=== PATIENT | female | born 1985 | race African-American/Black ===

== ENCOUNTER 2020-07-15 16:25 | Emergency (ER) | payer OTHER ==
[~2020-07-15] VITALS: Ht 175.3 cm; Wt 104.3 kg
[2020-07-15 16:29] VITALS: BP 141/110
[2020-07-15] MEDS ORDERED: KETOROLAC 30 MG/ML VIAL IVP ONE (16:40)
[2020-07-15 17:31] LABS: BASOPHILS # (AUTO) 0.1 K/uL (0.00-0.22); BASOPHILS % (AUTO) 1.6 % (0.0-2.0); EOSINOPHILS # (AUTO) 0.1 K/uL (0-0.4); EOSINOPHILS % (AUTO) 1.4 % (0.0-4.0); HEMATOCRIT 34.7 % (36-48); HEMOGLOBIN 11.2 g/dL (12.0-16.0); LYMPHOCYTES # (AUTO) 2.6 K/uL (2.5-16.5); LYMPHOCYTES % (AUTO) 33.7 % (20.5-51.1); MEAN CORPUSCULAR HEMOGLOBIN 25 pg (27-31); MEAN CORPUSCULAR HGB CONC 32 g/dL (33-37); MEAN CORPUSCULAR VOLUME 77.5 fL (80-94); MONOCYTES # (AUTO) 0.2 K/uL (0.8-1.0); MONOCYTES % (AUTO) 2.8 % (1.7-9.3); NEUTROPHILS # (AUTO) 4.7 K/uL (1.8-7.7); NEUTROPHILS % (AUTO) 60.5 % (42.2-75.2); PLATELET COUNT (AUTO) 448 K/uL (140-450); RED BLOOD CELL COUNT(AUTO) 4.48 MIL/uL (4.20-5.40); RED CELL DISTRIBUTION WIDTH 20.9 % (11.6-13.7); WHITE BLOOD COUNT (AUTO) 7.7 K/uL (4.8-10.8)
[2020-07-15 17:44] LABS: ALBUMIN 3.8 g/dL (3.4-5.0); ANION GAP 14.1 (8-16); CARBON DIOXIDE 22.9 mmol/L (21-32); CREATININE 0.8 mg/dL (0.6-1.3); TOTAL BILIRUBIN 0.2 mg/dL (0.0-1.0)
[2020-07-15 18:40] VITALS: BP 152/90
== END 2020-07-15 18:41 | disposition home or self-care (01) ==
LOC: MED 16:25
DX: R07.81 Pleurodynia (principal); R05 Cough; Z20.828 Contact with and (suspected) exposure to other viral communicable diseases; M54.9 Dorsalgia, unspecified
CPT/HCPCS: 71045; 80053; 83880; 84484; 85025; 93005; 96374; 99285; J1885; U0003

== ENCOUNTER 2021-03-14 13:54 | Emergency (ER) | payer OTHER ==
[~2021-03-14] VITALS: Ht 180.3 cm; Wt 101.6 kg
[2021-03-14 14:20] VITALS: BP 148/93
--- NOTE | 2021-03-14 14:40 | NUR ---
PATIENT LEFT WITHOUT BEING SEEN BY DR. BUCKLEY. NO FURTHER CARE PROVIDED FOR PATIENT.
== END 2021-03-14 14:40 | disposition left against medical advice (07) ==
LOC: MED 13:54
DX: J02.9 Acute pharyngitis, unspecified (principal); Z53.21 Procedure and treatment not carried out due to patient leaving prior to being seen by health care provider

== ENCOUNTER 2021-03-22 06:27 | Day surgery (SDC) | payer OTHER, SELFPAY ==
[~2021-03-22] VITALS: Ht 177.8 cm; Wt 99.3 kg
[2021-03-22 08:24] LABS: BASOPHILS % (AUTO) 0.8 % (0.0-2.0); EOSINOPHILS # (AUTO) 0.1 K/uL (0-0.4); EOSINOPHILS % (AUTO) 1.1 % (0.0-4.0); HEMATOCRIT 34.4 % (36-48); HEMOGLOBIN 11.1 g/dL (12.0-16.0); LYMPHOCYTES # (AUTO) 1.8 K/uL (2.5-16.5); LYMPHOCYTES % (AUTO) 30.2 % (20.5-51.1); MEAN CORPUSCULAR HEMOGLOBIN 25 pg (27-31); MEAN CORPUSCULAR HGB CONC 32 g/dL (33-37); MEAN CORPUSCULAR VOLUME 78.6 fL (80-94); MONOCYTES # (AUTO) 0.3 K/uL (0.8-1.0); MONOCYTES % (AUTO) 4.6 % (1.7-9.3); NEUTROPHILS # (AUTO) 3.8 K/uL (1.8-7.7); NEUTROPHILS % (AUTO) 63.3 % (42.2-75.2); PLATELET COUNT (AUTO) 467 K/uL (140-450); RED BLOOD CELL COUNT(AUTO) 4.37 MIL/uL (4.20-5.40); RED CELL DISTRIBUTION WIDTH 20.6 % (11.6-13.7); WHITE BLOOD COUNT (AUTO) 6.1 K/uL (4.8-10.8)
[2021-03-22 08:46] LABS: PROTHROMBIN TIME 9.3 secs (10.8-13.4)
[2021-03-22] MEDS ORDERED: LIDOCAINE 2% 1000 MG/50 ML VIAL INJ ONE (08:52)
[2021-03-22] MEDS ORDERED: fentaNYL citrate 0.05 MG/ML VIAL ONE (09:00)
[2021-03-22] MEDS ORDERED: MORPHINE SULFATE 4 MG/ML SYR ONE (10:18)
[2021-03-22] MEDS: MORPHINE SULFATE 4 MG/ML SYR IVP PRN ×2 (10:51→11:10)
[2021-03-22] MEDS ORDERED: fentaNYL citrate 0.05 MG/ML VIAL IVP ONE (11:45)
[2021-03-22] MEDS ORDERED: MORPHINE SULFATE 4 MG/ML SYR IVP PRN (12:55)
[2021-03-22] MEDS ORDERED: traMADol 50 MG TAB ONE (13:44)
[2021-03-22] MEDS ORDERED: traMADol 50 MG TAB PO SCH (14:00)
== END 2021-03-22 14:00 | disposition home or self-care (01) ==
LOC: MDS 06:27 → MFCC 06:28 → MDS 14:00
PROVIDERS: ATTEND Internal Medicine Gastroenterology
DX: K75.81 Nonalcoholic steatohepatitis (NASH) (principal); R94.5 Abnormal results of liver function studies; I10 Essential (primary) hypertension; Z79.899 Other long term (current) drug therapy
CPT/HCPCS: 36415; 47000; 76942; 81025; 85025; 85610; 85730; 87426; J2001; J2270; J3010; Q0092; 88307; 88313

== ENCOUNTER 2021-05-04 13:51 | Emergency (ER) | payer OTHER, SELFPAY ==
[~2021-05-04] VITALS: Ht 177.8 cm; Wt 99.8 kg
[2021-05-04 13:53] VITALS: BP 178/110
--- NOTE | 2021-05-04 13:58 | NUR ---
DR SAID EXAMINING PT IN TRIAGE
[2021-05-04 14:22] LABS: BASOPHILS # (AUTO) 0.1 K/uL (0.00-0.22); BASOPHILS % (AUTO) 0.7 % (0.0-2.0); EOSINOPHILS % (AUTO) 0.4 % (0.0-4.0); HEMATOCRIT 30.7 % (36-48); HEMOGLOBIN 9.9 g/dL (12.0-16.0); LYMPHOCYTES # (AUTO) 2.1 K/uL (2.5-16.5); LYMPHOCYTES % (AUTO) 26.6 % (20.5-51.1); MEAN CORPUSCULAR HEMOGLOBIN 25 pg (27-31); MEAN CORPUSCULAR HGB CONC 32 g/dL (33-37); MEAN CORPUSCULAR VOLUME 75.6 fL (80-94); MONOCYTES # (AUTO) 0.3 K/uL (0.8-1.0); NEUTROPHILS # (AUTO) 5.5 K/uL (1.8-7.7); NEUTROPHILS % (AUTO) 68.3 % (42.2-75.2); PLATELET COUNT (AUTO) 491 K/uL (140-450); RED BLOOD CELL COUNT(AUTO) 4.05 MIL/uL (4.20-5.40); RED CELL DISTRIBUTION WIDTH 19.7 % (11.6-13.7)
[2021-05-04 14:41] LABS: APPEARANCE,URINE CLOUDY (CLEAR); BILIRUBIN,URINE NEGATIVE (NEGATIVE); BLOOD, URINE 3+ (NEGATIVE); COLOR,URINE ORANGE (YELLOW); LEUKOCYTE ESTERASE ,URINE TRACE (NEGATIVE); NITRITE, URINE NEGATIVE (NEGATIVE); UGLUCOSE NEGATIVE (NEGATIVE)
[2021-05-04 14:43] LABS: ALBUMIN 3.7 g/dL (3.4-5.0); ANION GAP 14.3 (8-16); CARBON DIOXIDE 21.2 mmol/L (21-32); CREATININE 0.7 mg/dL (0.6-1.3); POTASSIUM 3.5 mmol/L (3.5-5.1); TOTAL BILIRUBIN 0.4 mg/dL (0.0-1.0)
[2021-05-04 14:58] LABS: RBC,URINE 80-100 /HPF (0-5)
--- NOTE | 2021-05-04 15:07 | NUR ---
35 Y/O F BIB SELF FROM HOME, PATIENT PRESENTS TO ED WITH VAGINAL BLEEDING FOR 13 DAYS, BRIGHT RED BLOOD, HEADACHE AND VAGINAL RASH. PT STATES SHE SOAKS THROUGH 4-5 PADS IN 1 DAY. DENIES N/V/D; SKIN IS PINK/WARM/DRY; AAOX4 WITH EVEN AND STEADY GAIT; LUNGS CLEAR BL; HR EVEN AND REGULAR; PT DENIES ANY FEVER, CP, SOB, OR COUGH AT THIS TIME; PATIENT STATES PAIN OF 4/10 AT THIS TIME; PATIENT POSITIONED FOR COMFORT; HOB ELEVATED; BEDRAILS UP X2; BED DOWN. ER MD MADE AWARE OF PT STATUS. PT STATES THE FIRST DAY OF HER LMP WAS 13 DAYS AGO. PMH: BLOOD CLOTS, HTN NKA
[2021-05-04] MEDS ORDERED: IBUP-2213 PO (15:21)
[2021-05-04] MEDS ORDERED: FERR325E14 PO (15:21)
[2021-05-04] MEDS ORDERED: ONDA-188 PO (15:23)
[2021-05-04] MEDS ORDERED: ONDANSETRON 4 MG ODT PO ONE (15:25)
[2021-05-04] MEDS ORDERED: KETOROLAC 15 MG/ML VIAL IM ONE (15:25)
[2021-05-04 15:56] VITALS: BP 178/110
--- NOTE | 2021-05-04 15:57 | NUR ---
Patient discharged with v/s stable. Written and verbal after care instructions given and explained. Patient alert, oriented and verbalized understanding of instructions. Ambulatory with steady gait. All questions addressed prior to discharge. ID band removed. Patient advised to follow up with PMD. Rx of FERROUS SULFATE, IBUPROFEN, ZOFRAN (SENT) given. Patient educated on indication of medication including possible reaction and side effects. Opportunity to ask questions provided and answered.
== END 2021-05-04 15:57 | disposition home or self-care (01) ==
LOC: MED 13:51
DX: D50.9 Iron deficiency anemia, unspecified (principal); D25.9 Leiomyoma of uterus, unspecified; R10.2 Pelvic and perineal pain; I10 Essential (primary) hypertension; Z98.890 Other specified postprocedural states; Z79.899 Other long term (current) drug therapy; Z79.1 Long term (current) use of non-steroidal anti-inflammatories (NSAID)
CPT/HCPCS: 36415; 76856; 80053; 81001; 81025; 84703; 85025; 86900; 86901; 87086; 93976; 96372; 99284; J1885; Q0092; Q0162

== ENCOUNTER 2021-07-01 09:11 | Emergency (ER) | payer OTHER ==
[~2021-07-01] VITALS: Ht 177.8 cm; Wt 97.1 kg
[~2021-07-01 09:11] MED LIST: FERR325E14 PO; IBUP-2213 PO; ONDA-188 PO
[2021-07-01 10:22] VITALS: BP 146/78
--- NOTE | 2021-07-01 10:46 | NUR ---
novel swab collected and sent to lab
--- NOTE | 2021-07-01 11:27 | NUR ---
Patient discharged with v/s stable. Written and verbal after care instructions given COVID 19 AND VIRAL ILLNESS and explained. Patient verbalized understanding. Ambulatory with steady gait. All questions addressed prior to discharge. Advised to follow up with PMD.
== END 2021-07-01 11:27 | disposition home or self-care (01) ==
LOC: MED 09:11
DX: B34.9 Viral infection, unspecified (principal); Z20.822 Contact with and (suspected) exposure to COVID-19; I10 Essential (primary) hypertension; Z79.899 Other long term (current) drug therapy
CPT/HCPCS: 99283; U0003

== ENCOUNTER 2021-07-27 12:11 | Emergency (ER) | payer OTHER ==
[~2021-07-27] VITALS: Ht 175.3 cm; Wt 100.9 kg
[2021-07-27 12:21] VITALS: BP 138/107
--- NOTE | 2021-07-27 12:41 | NUR ---
DR. TOBIN AT BEDSIDE FOR FURTHER EVALUATION.
[2021-07-27 13:10] LABS: BASOPHILS # (AUTO) 0.1 K/uL (0.00-0.22); BASOPHILS % (AUTO) 2.8 % (0.0-2.0); EOSINOPHILS # (AUTO) 0.1 K/uL (0-0.4); EOSINOPHILS % (AUTO) 1.3 % (0.0-4.0); HEMATOCRIT 35.2 % (36-48); HEMOGLOBIN 11.5 g/dL (12.0-16.0); LYMPHOCYTES # (AUTO) 1.9 K/uL (2.5-16.5); LYMPHOCYTES % (AUTO) 35.2 % (20.5-51.1); MEAN CORPUSCULAR HEMOGLOBIN 25 pg (27-31); MEAN CORPUSCULAR HGB CONC 33 g/dL (33-37); MEAN CORPUSCULAR VOLUME 76.7 fL (80-94); MONOCYTES # (AUTO) 0.2 K/uL (0.8-1.0); MONOCYTES % (AUTO) 4.7 % (1.7-9.3); NEUTROPHILS # (AUTO) 2.9 K/uL (1.8-7.7); PLATELET COUNT (AUTO) 413 K/uL (140-450); RED BLOOD CELL COUNT(AUTO) 4.59 MIL/uL (4.20-5.40); WHITE BLOOD COUNT (AUTO) 5.3 K/uL (4.8-10.8)
[2021-07-27 13:27] LABS: ANION GAP 14.1 (8-16); CARBON DIOXIDE 24.6 mmol/L (21-32); CREATININE 0.6 mg/dL (0.6-1.3); POTASSIUM 3.7 mmol/L (3.5-5.1)
[2021-07-27 14:10] VITALS: BP 130/95
--- NOTE | 2021-07-27 14:10 | NUR ---
Patient discharged with v/s stable. Written and verbal after care instructions given FOR DIZZINESS and explained. Patient verbalized understanding. Ambulatory with steady gait. All questions addressed prior to discharge. Advised to follow up with PMD.
== END 2021-07-27 14:10 | disposition home or self-care (01) ==
LOC: MED 12:11
DX: D64.9 Anemia, unspecified (principal); R42 Dizziness and giddiness; I10 Essential (primary) hypertension; Z98.890 Other specified postprocedural states; Z79.1 Long term (current) use of non-steroidal anti-inflammatories (NSAID); Z79.899 Other long term (current) drug therapy
CPT/HCPCS: 36415; 80048; 85025; 93005; 99284

== ENCOUNTER 2022-01-16 08:23 | Emergency (ER) | payer OTHER ==
[~2022-01-16] VITALS: Ht 172.7 cm; Wt 86.2 kg
[2022-01-16 08:30] VITALS: BP 137/78
--- NOTE | 2022-01-16 08:50 | NUR ---
PT AMBULATED WITH STEADY GAIT TO BED 1
--- NOTE | 2022-01-16 08:54 | NUR ---
36 Y/O FEMALE BIB SELF C/O OF BODY FATIGUE AND LOSS OF TASTE AND SMELL, TESTED POSITIVE FOR COVID ON THURSDAY. DENIES ANY N/V/D, DENIES ANY COUGH, DENIES SOB AT THIS TIME NKA PMH: HTN
--- NOTE | 2022-01-16 09:04 | NUR ---
DR SIERRA AT BEDSIDE FOR EVAL
[2022-01-16 09:40] VITALS: BP 137/78
--- NOTE | 2022-01-16 09:40 | NUR ---
Patient discharged with v/s stable. Left without d/c instructions. Ambulatory with steady gait. All questions addressed prior to discharge. Advised to follow up with PMD.
== END 2022-01-16 09:40 | disposition home or self-care (01) ==
LOC: MED 08:23
DX: U07.1 COVID-19 (principal); I10 Essential (primary) hypertension; Z79.899 Other long term (current) drug therapy
CPT/HCPCS: 99281